=== PATIENT | male | born 1970 | race American Indian/Alaskan Native ===

== ENCOUNTER 2021-04-01 14:03 | Emergency (ER) | payer OTHER ==
--- NOTE | 2021-04-01 15:16 | XRay Report ---
Left shoulder radiograph, 4 views. HISTORY: Pain after injury COMPARISON: None FINDINGS: There is anterior dislocation of the left glenohumeral joint. Suspected mild impaction Hill -Sachs deformity of the posterolateral humeral head. No additional fracture identified. Left AC joint is intact. Signer Name: Zacarias Gusman MD Signed: 04/01/2021 3:12 PM Workstation Name: [id number]
[2021-04-01] MEDS ORDERED: fentaNYL 100 MCG/2 ML INJ IV ONE ×2 (16:11→20:00)
[2021-04-01] MEDS ORDERED: MIDAZOLAM 5 MG/5 ML INJ MDV IV ONE (16:11)
[2021-04-01] MEDS ORDERED: ONDANSETRON 4 MG/2 ML INJ IV ONE (16:11)
[2021-04-01] MEDS ORDERED: SODIUM CHLORIDE 0.9% 1000 ML 1,000 ML IV ONE (16:11)
[2021-04-01] MEDS ORDERED: ETOMIDATE 20 MG/10 ML INJ IV ONE (16:31)
--- NOTE | 2021-04-01 16:42 | Emergency Department Report ---
ED Upper Extremity Inj HPI - General Chief Complaint: Shoulder Injury Stated Complaint: LEFT SHOULDER DISLOCATION Time Seen by Provider: 04/01/21 16:11 Source: patient Mode of arrival: Ambulatory Limitations: No Limitations - History of Present Illness Initial Comments: Patient is 50 years old male with no significant past medical history. Patient presented to the ER complaining of left shoulder pain and deformity. Patient stated that he fell this afternoon. Patient denied any other injuries. Patient denied any loss of consciousness, neck pain, chest pain, abdominal pain or any other extremities pain. MD Complaint: Injury to:: left, shoulder -: Sudden Other Extremity Injury: Shoulder: Left Other Injuries: none Improves With: immobilization Worsens With: movement of extremity Context: fall Associated Symptoms: denies other symptoms - Related Data Allergies Allergy/AdvReac Type Severity Reaction Status Date / Time No Known Allergies Allergy Unverified 04/01/21 14:26 ED Review of Systems ROS: Stated complaint: LEFT SHOULDER DISLOCATION Other details as noted in HPI Comment: All other systems reviewed and negative Constitutional: denies: chills, fever Respiratory: denies: cough, shortness of breath, SOB with exertion Cardiovascular: denies: chest pain, palpitations Gastrointestinal: denies: abdominal pain, nausea, vomiting Musculoskeletal: denies: back pain Neurological: denies: headache, weakness, numbness, paresthesias, confusion, abnormal gait ED Past Medical Hx - Past Medical History Previous Medical History?: No - Surgical History Additional Surgical History: BACK FUSION - Social History Smoking Status: Never Smoker Substance Use Type: None ED Physical Exam - General Limitations: No Limitations General appearance: alert, in distress (pain) - Head Head exam: Present: atraumatic, normocephalic, normal inspection - Eye Eye exam: Present: normal appearance, PERRL - ENT ENT exam: Present: normal exam, normal orophraynx, mucous membranes moist - Neck Neck exam: Present: normal inspection, full ROM. Absent: tenderness, meningismus - Respiratory Respiratory exam: Present: normal lung sounds bilaterally - Cardiovascular Cardiovascular Exam: Present: regular rate, normal rhythm, normal heart sounds - GI/Abdominal GI/Abdominal exam: Present: soft, normal bowel sounds. Absent: distended, tenderness, guarding, rebound, rigid, organomegaly, mass, bruit, pulsatile mass, hernia - Expanded Upper Extremity Exam Left Shoulder Exam: Present: tenderness, dislocation. Absent: swelling, abrasion, laceration, ecchymosis, erythema, tenderness over AC joint Upper Arm exam: Present: normal inspection, full ROM. Absent: tenderness, swelling Elbow exam: Present: normal inspection, full ROM. Absent: tenderness, swelling Forearm Wrist exam: Present: normal inspection, full ROM. Absent: tenderness, swelling Hand Wrist exam: Present: normal inspection, full ROM. Absent: tenderness, swelling Neuro motor exam: Present: wrist extension intact, thumb opposition intact, thumb IP flexion intact, thumb adduction intact, fingers 2-5 abduction intact Neurosensory exam: Present: 2-point discrimination, radial nerve intact, ulnar nerve intact, median nerve intact Vascular: Present: normal capillary refill - Back Exam Back exam: Present: normal inspection, full ROM. Absent: CVA tenderness (R), CVA tenderness (L) - Neurological Exam Neurological exam: Present: alert, oriented X3, CN II-XII intact - Psychiatric Psychiatric exam: Present: normal mood - Skin Skin exam: Present: warm, intact, normal color ED Course Vital Signs 04/01/21 14:29 Pulse Rate 93 H Respiratory 20 Rate Blood Pressure 131/86 [Right] O2 Sat by Pulse 97 Oximetry - Moderate Sedation Indications: fracture/dislocation redu ASA Class: II Mallampati Airway Score: 2 Preparation: cafeteria monitor applied, pulse oximeter, capnometry used, supplemental O2 applied, reversal agents at bedside, suction/airway equipment at bedside, IV secured Fentanyl: IV Midazolam: IV IV Etomidate Dose (mgs): 7 Complications: none Patient Tolerated Procedure: well, no complications - Orthopedic Joint Reduction Joint #1 Consent Obtained: written consent Time Out Performed: Yes Side: left Joint Reduction Location: shoulder Analgesia: moderate sedation Shoulder Technique Used (if applicable): traction/counter-traction Post-Reduction Neuro Exam: intact Post-Reduction Vascular Exam: intact Post Reduction X-Ray Obtained: Yes Post Reduction X-Ray Results: reduced Splint Applied: Yes Patient Tolerated Procedure: well, no complications ED Medical Decision Making - Radiology Data Radiology results: report reviewed - Medical Decision Making Patient is 50 years old male with no significant past medical history. Patient presented to the ER complaining of left shoulder pain and deformity. Patient stated that he fell this afternoon. Patient denied any other injuries. Patient denied any loss of consciousness, neck pain, chest pain, abdominal pain or any other extremities pain. Left shoulder x-ray showed left shoulder dislocation. Under moderate sedation, left shoulder reduced. Left arm sling applied. Patient advised to follow-up with Dr. Marsh in the next 2 to 3 days and to return to the ER if he develop any new symptoms. Critical care attestation.: If time is entered above; I have spent that time in minutes in the direct care of this critically ill patient, excluding procedure time. ED Disposition Clinical Impression: Dislocation of left shoulder joint Disposition: HOME / SELF CARE / HOMELESS Is pt being admited?: No Condition: Stable Instructions: Shoulder Dislocation, Moderate Conscious Sedation, Adult Referrals: SEVERIANO MARSH MD [Staff Physician] - 3-5 Days
[2021-04-01 17:22] VITALS: BP 143/92
--- NOTE | 2021-04-01 17:24 | XRay Report ---
SINGLE VIEW LEFT SHOULDER 4:57 PM EASTERN TIME INDICATION: Left shoulder dislocation reduction.. COMPARISON: Earlier today. FINDINGS: Previously seen anterior-inferior left shoulder dislocation has been reduced. No displaced fracture i s identified. IMPRESSION: 1. Satisfactory postreduction film. Signer Name: Candido Resendiz MD Signed: 04/01/2021 5:19 PM Workstation Name: [id number]
[2021-04-01] MEDS ORDERED: fentaNYL 250 MCG/5 ML INJ IV ONE (19:40)
== END 2021-04-01 18:50 | disposition home or self-care (01) ==
LOC: ED 14:03
DX: Z98.890 Other specified postprocedural states (principal)
CPT/HCPCS: 23650; 73020; 73030; 96361; 96374; 99284; J2250; J2405; J3010; J7030; 96375; 96376